=== PATIENT | male | born 1965 | race Two or more races ===

== ENCOUNTER → 2023-07-15 08:12 | Outpatient (REF) | payer OTHER, SELFPAY ==
--- NOTE | 2023-07-15 08:16 | CA_ITS ---
Transthoracic Echocardiogram Amended Patient (Last, First, Middle): Gustavo Lopez, Gender: Male Date of : 1965 Age: 57 Procedure Date: 07/15/2023 Procedure Type: Transthoracic Echocardiogram Location: OP Height: 170.18 cm Weight: 81.65 kg BSA: 1.93 m2 Heart Rate: 65 bpm BP: 140 / 90 mmHg Sales Analytics Manager: LADI Referring MD: Satya Elena MD Symptoms: SOB ON EXERTION R06.02 Study Quality: Technically Difficult ECG Rhythm: Sinus Conclusions: - The left ventricular systolic function is low normal. The calculated ejection fraction is 53% by biplane method. - The basal inferoseptal segment is dyskinetic. - Severely increased right ventricular cavity size. - The right atrium is severely dilated. - Right to left inter-atrial shunting noted by color doppler. - There is mild dilatation of the sinuses of Valsalva measuring 4.40 cm and mild dilatation of the ascending aorta measuring 3.90 cm. Findings Left Ventricle Mildly increased left ventricular cavity size. There is moderately increased left ventricular wall thickness. The left ventricular systolic function is low normal. The calculated ejection fraction is 53% by biplane method. There is no evidence of regional wall motion abnormalities. Diastolic function is normal for age. LV peak GLS -17.7%. Wall Motion Rest Echo Findings The basal inferoseptal segment is dyskinetic. Right Ventricle Severely increased right ventricular cavity size. There is mildly decreased right ventricular systolic function. Atria The left atrium is normal in size. The right atrium is severely dilated. Right to left inter-atrial shunting noted by color doppler. Aortic Valve There is a normal trileaflet aortic valve. There is mild calcification of the aortic valve. Mitral Valve The mitral valve appears normal. There is no mitral valve regurgitation. There is no mitral valve stenosis. Pulmonic Valve The pulmonic valve was not well visualized. Tricuspid Valve There is mild tricuspid valve regurgitation. There is no evidence of pulmonary hypertension. Annulus appears thickened. Great Vessels There is mild dilatation of the sinuses of Valsalva measuring 4.40 cm and mild dilatation of the ascending aorta measuring 3.90 cm. Venous The inferior vena cava is mildly dilated and collapses greater than 50% with inspiration. Pericardium/Pleural There is no evidence of pericardial effusion. Prior Study Comparison No prior study available for comparison. Measurements 2D Linear Measurements IVSd: 1.36 0.6-0.9/0.6-1.0 cm LVIDd: 5.57 3.9-5.3/4.2-5.9 cm LVIDd Index: 2.89 2.4-3.2/2.2-3.1 cm/m2 LVIDs: 4.12 2.0-3.6 cm LVPWd: 1.22 0.7-1.1 cm LA Diam: 4.10 2.7-3.8/3.0-4.0 cm LAIDs Index: 2.12 1.5-2.3 cm/m2 LV Mass: 383.28 67-162/88-224 g LV Mass Index: 198.59 43-95/49-115 g/m2 LVOT Diam: 2.60 3.0+(-)1.3 cm 2D Volumes LA Vol: 28.70 2D Systolic Function EF 4C: 44.80 >55% EF 2C: 61.30 >55% EF BiP: 53.30 >55% Mitral Valve MV Pk E: 0.55 MV PK A: 0.57 MV Decel Time: 261.00 E/A: 1.00 E'Lateral: 12.60 E'Medial: 4.54 E/E' Med: 12.00 E/E' Lat: 4.30 PHT: 76.00 MVA PHT: 2.89 Decel [place]: 2.09 Aortic Valve AoV Pk Aldo: 1.11 AoV Mn Aldo: 0.88 AoV VTI: 0.26 AoV Pk Grad: 5.00 Aov Mn Grad: 3.00 CELESTINO Cont.VTI: 3.71 LVOT LVOT Pk Aldo: 0.81 LVOT Mn Adlo: 0.57 LVOT VTI: 0.18 LVOT Pk Grad: 3.00 LVOT Mn Grad: 1.00 LVOT Diam: 2.60 LVOT Area: 5.31 Diastolic Function MV Pk E: 0.55 MV Pk A: 0.57 E/A: 1.00 E'Medial: 4.54 E/E' Med: 12.00 E' Laterial: 12.60 E/E' Lat: 4.30 Right Ventricle TAPSE (mm): 22.40 TVS' Aldo: 8.84 Tricuspid Valve TR Pk Aldo: 2.09 TR Pk Grad: 17.00 RA Press: 8.00 RVSP: 25.00 Great Vessels Aorta Sinus of Valsalva: 4.40 2.0-3.5 cm Ao Asc: 3.90 2.1-3.4 cm Pulmonary Valve PV Pk Aldo: 1.21 Peak PV Grad: 6.00 Updated in Other Vendor System with Status of Final David West MD electronically signed on 07/16/2023 4:12:02 PM with status of Final
== END ==
LOC: HO.CARD 08:12
PROVIDERS: PCP Internal Medicine; Visit Provider Internal Medicine Cardiovascular Disease
DX: R06.02 Shortness of breath (principal)
CPT/HCPCS: 93306; 93356

== ENCOUNTER → 2023-07-15 08:16 | Outpatient (BNV) | payer OTHER, SELFPAY | PROVIDERS: PCP Internal Medicine; Visit Provider Internal Medicine | DX: I36.1 Nonrheumatic tricuspid (valve) insufficiency (principal); I35.8 Other nonrheumatic aortic valve disorders | CPT/HCPCS: 93306 ==